=== PATIENT | male | born 1960 | race Caucasian/White ===

== ENCOUNTER 2025-06-06 07:30 | Observation (INO) ==
--- NOTE | 2025-06-06 07:44 | EKG ---
Test Reason : SOB Blood Pressure : */* mmHG Vent. Rate : 92 BPM Atrial Rate : * BPM P-R Int : * ms QRS Dur : 84 ms QT Int : 372 ms P-R-T Axes : * 48 81 degrees QTc Int : 460 ms Atrial fibrillation Abnormal ECG When compared with ECG of 19-FEB-2024 16:28, No significant change was found Confirmed by Ron Doll MD ([id number]) on 06/07/2025 7:28:36 AM Referred By: Confirmed By: Ron Doll MD
[2025-06-06 08:09] LABS: MEAN PLATELET VOLUME 7.8 fL (7.4-11.0); RED CELL DISTRIBUTION WIDTH 14.7 % (11.6-16.5)
[2025-06-06 08:12] LABS: INR 1.01 (0.8-1.3)
[2025-06-06] MEDS: ELIQUIS PO ONE (08:20)
[2025-06-06] MEDS: CARDIZEM INJ 50 MG VIAL IVP ONE (08:21)
[2025-06-06] MEDS ORDERED: OMNIPAQUE 350 mg/mL 100 mL BTL 100 ML ONE (08:21)
[2025-06-06 08:22] LABS: CREATININE 1.17 mg/dL (0.70-1.30); eGFR NON BLACK RACES > 60 (>60)
--- NOTE | 2025-06-06 09:14 | DR.SOBA ---
HPI Time Seen Time Seen by Provider: 06/06/25 09:14 Primary Care Physician Primary Care Physician: Cha Damon HPI Comment HPI Comment: Patient with complaints of sudden onset of shortness of breath and palpitations since yesterday. Denies fever or chills. Denies chest pain. Complaints Chief Complaint:: Pt states that yesterday he had a sudden onset of shortness of breath. Pt states that the shortness of breath is at rest and with exertion.Pt states, "I feel like I just can't get a good deep breath in." Pt denies any chest pain, cough, fever or chills. COVID-19 Coronavirus risk:travel/contact w/high risk person: No Has patient experienced Coronavirus symptoms: No Source History Provided: Patient Mode of Arrival Mode of Arrival: Ambulatory Timing Onset of Chief Complaint: 06/06/25 PMH PMH Past Medical History: Yes Past Medical History: Arthritis Past Medical History Comment: afib,BPH Past Surgical History: Yes Surgical History: Ortho Surgery Past Surgical History Comment: left knee surgery, right rotator surgery, left ear surgery, weight loss surgery, hernia repair Family History History of Family Medical Conditions: Yes Family Medical History: Diabetes Mellitus Social History Does patient currently use any type of tobacco product: No Have you used tobacco products in the last 12 months: No Type of Tobacco Use: None Does any household member use tobacco: No Alcohol Use: None Do you use any recreational Drugs:: No Lives With: Family Lives Where: Home Travel Risk Coronavirus risk:travel/contact w/high risk person: No Has patient experienced Coronavirus symptoms: No Infectious screening In the last 2 months have you had wt loss of >10#?: NO Have you had fever, night sweats or hemotysis?: No Have you traveled outside the country in the last 6 months?: No Isolation: Standard ROS Review of Systems Constitutional: No Symptoms Reported Eyes: No Symptoms Reported ENTM: No Symptoms Reported Respiratoy: See HPI and Short of Breath; negative Non-Productive Cough or Wheezing Cardiovascular: See HPI and Palpitations; negative Chest Pain, Edema or Syncope Gastrointestinal/Abdominal: No Symptoms Reported Genitourinary: No Symptoms Reported Neurological: No Symptoms Reported Musculoskeletal: No Symptoms Reported Integumentary: No Symptoms Reported Hematologic/Lymphatic: No Symptoms Reported Endocrine: No Symptoms Reported Psychiatric: No Symptoms Reported All Other Systems: Reviewed and Negative PE Vital Signs Vitals: Vital Signs Temperature 97.8 F Pulse Rate 107 Pulse Rate 99 Pulse Rate 95 Pulse Rate 85 Pulse Rate 83 Pulse Rate 84 Pulse Rate 91 Pulse Rate 96 Pulse Rate 96 Pulse Rate 80 Pulse Rate 85 Pulse Rate 104 Pulse Rate 118 Pulse Rate 108 Pulse Rate 105 Pulse Rate 102 Respiratory Rate 25 Respiratory Rate 26 Respiratory Rate 31 Respiratory Rate 21 Respiratory Rate 20 Respiratory Rate 23 Respiratory Rate 22 Respiratory Rate 24 Respiratory Rate 28 Respiratory Rate 23 Respiratory Rate 21 Respiratory Rate 24 Respiratory Rate 18 Respiratory Rate 12 Respiratory Rate 24 Blood Pressure 220/119 Blood Pressure 180/104 Blood Pressure 213/95 Blood Pressure 176/121 Blood Pressure 178/96 Blood Pressure 153/101 Blood Pressure 182/124 Blood Pressure 118/115 Blood Pressure 184/111 Blood Pressure 184/111 O2 Sat by Pulse Oximetry 93 O2 Sat by Pulse Oximetry 95 O2 Sat by Pulse Oximetry 97 O2 Sat by Pulse Oximetry 92 O2 Sat by Pulse Oximetry 94 O2 Sat by Pulse Oximetry 96 O2 Sat by Pulse Oximetry 94 O2 Sat by Pulse Oximetry 97 O2 Sat by Pulse Oximetry 98 O2 Sat by Pulse Oximetry 98 O2 Sat by Pulse Oximetry 98 O2 Sat by Pulse Oximetry 98 O2 Sat by Pulse Oximetry 96 O2 Sat by Pulse Oximetry 99 General Limitations: No Limitations General Appearance: Alert and In No Apparent Distress Head Head Exam: Normal Inspection Eyes Eye exam: Normal Appearance ENT ENT Exam: Normal Exam Neck Neck Exam: Normal Inspection Chest Chest Inspection: Normal Inspection Respiratory Respiratory Exam: Other (Diminished right lower lobe.) Cardiovascular Cardiovascular Exam: Tachycardia and Irregular Rhythm Abdominal Exam Abdominal Exam: Normal Inspection, Normal Bowel Sounds and Soft Extremities Extremities Exam: Normal Capillary Refill and Edema Back Back Exam: Normal Inspection Neurologic Neurological Exam: Alert and Oriented X3 Psychiatric Psychiatric Exam: Normal Affect and Normal Mood Skin Skin Exam: Warm, Dry, Intact and Normal Color COURSE Treatment Treatment: Patient with A-fib and RVR improved on diltiazem. Consultation Consultation Comments: Discussed case with Dr. Howell and he is agreeable to admission. Critical Care Notes Total Time (mins): 37 Critical Diagnosis: A-fib with RVR, acute on chronic CHF, right-sided pneumonia Critical Interventions: Vancomycin and Zosyn administered, 20 mg of IV Lasix. Extensive workup including looking for blood clots. Time also spent coordinating care with hospitalist for admission. ROR Labs Reviewed Laboratory Results Reviewed?: Yes 06/06/25 07:56 06/06/25 07:56 Laboratory: WBC 4.3 X10^3/uL (3.6-10.0) 06/06/25 07:56 RBC 4.51 X10^6/uL (4.7-6.0) L 06/06/25 07:56 Hgb 13.3 g/dL (13.5-18.0) L 06/06/25 07:56 Hct 39.9 % (42.0-54.0) L 06/06/25 07:56 MCV 88.6 fL (80.0-100.0) 06/06/25 07:56 MCH 29.6 pg (27.0-34.0) 06/06/25 07:56 MCHC 33.4 g/dL (33.0-35.0) 06/06/25 07:56 RDW 14.7 % (11.6-16.5) 06/06/25 07:56 Plt Count 169 X10^3/uL (150.0-450.0) 06/06/25 07:56 MPV 7.8 fL (7.4-11.0) 06/06/25 07:56 Neut % (Auto) 82.6 % (42.0-75.0) H 06/06/25 07:56 Lymph % (Auto) 8.2 % (21.0-51.0) L 06/06/25 07:56 [place] % (Auto) 7.0 % (0.0-13.0) 06/06/25 07:56 Eos % (Auto) 1.6 % (0.9-2.9) 06/06/25 07:56 Baso % (Auto) 0.6 % (0.2-1.0) 06/06/25 07:56 Neut # (Auto) 3.6 x10^3/uL (2.2-4.8) 06/06/25 07:56 Lymph # (Auto) 0.4 X10^3/uL (1.3-2.9) L 06/06/25 07:56 [place] # (Auto) 0.3 x10^3/uL (0.3-0.8) 06/06/25 07:56 Eos # (Auto) 0.1 x10^3/uL (0.0-0.2) 06/06/25 07:56 Baso # (Auto) 0.0 X10^3/uL (0.0-0.1) 06/06/25 07:56 Absolute Nucleated RBC 0.0 /100WBC 06/06/25 07:56 PT 13.4 SECONDS (11.8-14.3) 06/06/25 07:56 INR Target Range - 06/06/25 07:56 INR 1.01 (0.8-1.3) 06/06/25 07:56 APTT 28.2 SECONDS (22.9-36.5) 06/06/25 07:56 PTT Comment - 06/06/25 07:56 D-Dimer 1.46 ug/ml (0.0-0.57) H 06/06/25 07:56 Sodium 141 mmol/L (136-145) 06/06/25 07:56 Corrected Sodium TNP 06/06/25 07:56 Potassium 4.2 mmol/L (3.5-5.1) 06/06/25 07:56 Chloride 103 mmol/L (98-107) 06/06/25 07:56 Carbon Dioxide 32.4 mmol/L (21-32) H 06/06/25 07:56 BUN 17 mg/dL (7-18) 06/06/25 07:56 Creatinine 1.17 mg/dL (0.70-1.30) 06/06/25 07:56 Est GFR (MDRD) Af Amer > 60 (>60) 06/06/25 07:56 Est GFR (MDRD) Non-Af > 60 (>60) 06/06/25 07:56 Glucose 108 mg/dL (65-99) H 06/06/25 07:56 Lactic Acid 1.0 mmol/L (0.4-2.0) 06/06/25 09:43 Calcium 8.6 mg/dL (8.5-10.1) 06/06/25 07:56 Corrected Calcium TNP 06/06/25 07:56 Total Bilirubin 1.00 mg/dL (0.2-1.0) 06/06/25 07:56 AST 33 Units/L (15-37) 06/06/25 07:56 ALT 33 Units/L (12-78) 06/06/25 07:56 Alkaline Phosphatase 120 Units/L (46-116) H 06/06/25 07:56 Creatine Kinase 86 Units/L (39-308) 06/06/25 07:56 Troponin I High Sens 22.7 ng/L (4.0-60.0) 06/06/25 09:43 B-Natriuretic Peptide 132 pg/mL (0-79) H 06/06/25 07:56 Total Protein 7.0 g/dL (6.4-8.2) 06/06/25 07:56 Albumin 3.6 g/dL (3.4-5.0) 06/06/25 07:56 Globulin 3.4 g/dL (2.5-4.5) 06/06/25 07:56 Albumin/Globulin Ratio 1.1 Ratio (1.1-2.1) 06/06/25 07:56 Other Results Comments: Name: ALYSSA ANDRADE Miley : 1960 Sex: M Location: ER Order Number(s): [id number] Procedure(s):LOWER EXT VENOUS, BILATERAL Ordering Physician: Ulises Holliday Primary Care: Tenisha Damon Service Date: 06/06/25 Service Time: 914 EXAM: LOWER EXT VENOUS, BILATERAL HISTORY: elevated ddimer; SOB, POS D DIMER COMPARISON: None. TECHNIQUE: Grayscale and color Doppler imaging of the bilateral lower extremities using compression and augmentation techniques focused to the deep venous system. FINDINGS: There is normal color Doppler flow demonstrated from the common femoral vein through of the posterior tibial vein of the bilateral lower extremities. The vessels augment and compress normally with no DVT identified. IMPRESSION: Negative for DVT in the right and left lower extremity. Generalized subcutaneous edema is noted. THIS IS AN ELECTRONICALLY VERIFIED FINAL REPORT 06/06/2025 10:36 AM - Electronically signed by Geoff Borjas MD Name: RAYMONDALYSSA Miley : 1960 Sex: M Location: ER Order Number(s): [id number] Procedure(s):CTA, CHEST Ordering Physician: Ulises Holliday Primary Care: Tenisha Damon Service Date: 06/06/25 Service Time: 808 EXAM: CTA, CHEST HISTORY: shortness of breath; COMPARISON: Chest x-ray of same day TECHNIQUE: Axial CT was performed from the thoracic inlet to the upper abdomen with an arterial phase IV contrast bolus. The axial sequences are reconstructed with multiplaner reformats;volume rendered MIP and/or 3D reconstruction was generated from the original axial dataset. FINDINGS: The thyroid gland is average size There is a large right-sided pleural effusion with associated compressive related subsegmental atelectasis within the inferior right upper lobe along the surface of the fissures, abutting the pleural effusion. A portion of the pleural effusion is also observed to communicate with the major and minor fissure. There is a trace left-sided pleural effusion which also communicates with left major fissure. Subsegmental atelectasis is demonstrated within the left upper lobe, lingula, and left lower lobe. There is evidence of interlobular septal thickening associated with mild interstitial edema. The cardiac silhouette is enlarged with multi chamber dilation. The left ventricular wall is hypertrophied. Right sided heart dilation is also demonstrated with minimal reflux of contrast into the IVC. There is generalized anasarca of the soft tissues. Altogether this indicates the presence of both left and right-sided heart dysfunction Multiple calcified mediastinal and hilar lymph nodes are observed. No pathologically enlarged noncalcified lymph nodes are identified. Small pericardial effusion is observed. Thoracic aorta caliber is within normal limits. Assessment of pulmonary thromboembolism is limited on this exam due to extensive respiratory motion artifact. This results in an in homogeneous appearance of the segmental and subsegmental pulmonary artery branches particularly within the upper lobes. However, please note that there are no centrally occlusive filling defects associated with the main, lobar, and proximal segmental pulmonary artery branches meeting criteria for pulmonary thromboembolism. Postsurgical changes are demonstrated at the GE junction. Surgical suture material is seen along the lesser curvature of the stomach. A small sliding-type hiatal hernia is suspected. Motion artifact also limits anatomic detail through the upper abdomen. There are punctate nonobstructing calculi associated with left and right kidney. No significant free fluid is identified within the upper abdomen. There is thickening and low attenuation of the bilateral adrenal glands, right more so than left. Evaluation of the bony structures reveals no acute osseous abnormalities or aggressive bony lesions. Multilevel bridging osteophytes of the spine are typical of diffuse idiopathic skeletal hyperostosis. Multilevel Schmorl's node defects are observed. There is a chronic appearing T9 compression fracture with moderate height loss. Thoracic aortic caliber IMPRESSION: Cardiomegaly with dilatation of the right and left heart chambers, left ventricular wall hypertrophy and small pericardial effusion. Mild pulmonary edema. Large right-sided pleural effusion and small right-sided pleural effusion communicating with the fissures, with a associated subsegmental atelectasis Reflux of contrast into the IVC and anasarca of the soft tissues indicating concomitant right-sided and left-sided heart dysfunction Exam is limited significantly by respiratory motion artifact with respect to pulmonary thromboembolism assessment, resulting in inhomogeneous appearance of the segmental and subsegmental pulmonary artery branches, particularly within the bilateral upper lobes; however, there are no centrally occlusive filling defects within the larger caliber pulmonary artery branches meeting criteria for pulmonary thromboembolism. If pulmonary thromboembolism remains of clinical concern, repeat exam may be considered. Calcified mediastinal and hilar lymph nodes may be associated with old granulomatous disease, sarcoidosis, or previously treated lymphoproliferative disorder. Punctate bilateral nonobstructing renal calculi Radiation dose reduction was achieved through individualized adjustment of kVP and/or mA, through adaptive statistical iterative reconstruction, and/or through automated tube current modulation. THIS IS AN ELECTRONICALLY VERIFIED FINAL REPORT 06/06/2025 10:12 AM - Electronically signed by Geoff Borjas MD XRAY X-ray Results: Name: ALYSSA ANDRADE [facility]#: [id number] : 1960 Sex: M Location: Order Number(s): [id number] Procedure(s):CHEST, 1 VIEW X-RAY Ordering Physician: Ulises Holliday Primary Care: Tenisha Damon Service Date: 06/06/25 Service Time: 742 EXAM: CHEST, 1 VIEW HISTORY: SOB ; COMPARISON: No relevant prior studies were available for comparison at the time of interpretation. TECHNIQUE: CHEST, 1 VIEW FINDINGS: Chest: Lines and tubes: Cardiac leads overlie the chest. Mediastinum: Cardiomegaly. Pulmonary vessels: There is pulmonary vascular congestion. Lung jack: Patchy opacities are seen Pleura: There is blunting of the right costophrenic angle. No pneumothorax. Bones and soft tissues: No acute osseous or soft tissue abnormality. IMPRESSION: 1. Findings suggest pneumonia versus heart failure exacerbation THIS IS AN ELECTRONICALLY VERIFIED FINAL REPORT 06/06/2025 9:19 AM - Electronically signed by Jessee Dewitt MD EKG Rate: 92 [place]: Normal Rhythm: Afib ST: Normal Opioid Opioid Risk Tool Age (Jeffery box if 16-45): No History of Preadolescent Sexual Abuse: No Total: 0 Total Score Risk Category: Low Risk Copyright: [place] LR predicting aberrant behaviors Discharge Plan Diagnosis Discharge Problem: Atrial fibrillation with rapid ventricular response, Acute exacerbation of CHF (congestive heart failure), Pneumonia involving right lung Discharge Plan Patient Disposition: ADMITTED INPATIENT Condition: Stable Prescriptions: No Action tramadol 50 MG tablet 50 mg PO Q4H PRN (Reason: Pain) tamsulosin 0.4 mg capsule 0.4 mg PO DAILY dextroamphetamine-amphetamine 30 mg tablet 30 mg PO BID ibuprofen 800 mg tablet 800 mg PO TID Health Concerns: Post Hospitalization: new medications and changes needed to prevent readmission or further decline. Pt educated and given instructions on all concerns. Plan of Treatment: Continue with present treatment and follow up plan. Pt is to keep follow up appointment as instructed and take medications as ordered. Orders to Discharge Patient Discharge Orders: Transfer (Routine); Ordered 06/06/25 Ordered By: Ulises Holliday Follow ups/Referrals Follow ups/Referrals: TENISHA DAMON [Primary Care Provider, Unknown] - 3 days Instructions Stand Alone Forms: Find Help Web Site, Post Hospital Follow Up Care Print Language: WELSH
[2025-06-06] MEDS: APRESOLINE INJ 20 MG VIAL IVP ONE (09:21)
[2025-06-06] MEDS ORDERED: NS 250 ML IV 25 ML IV PRN (09:22)
--- NOTE | 2025-06-06 09:22 | RAD ---
EXAM: CHEST, 1 VIEW HISTORY: SOB ; COMPARISON: No relevant prior studies were available for comparison at the time of interpretation. TECHNIQUE: CHEST, 1 VIEW FINDINGS: Chest: Lines and tubes: Cardiac leads overlie the chest. Mediastinum: Cardiomegaly. Pulmonary vessels: There is pulmonary vascular congestion. Lung jack: Patchy opacities are seen Pleura: There is blunting of the right costophrenic angle. No pneumothorax. Bones and soft tissues: No acute osseous or soft tissue abnormality. IMPRESSION: 1. Findings suggest pneumonia versus heart failure exacerbation THIS IS AN ELECTRONICALLY VERIFIED FINAL REPORT 06/06/2025 9:19 AM - Electronically signed by Jessee Dewitt MD
[2025-06-06] MEDS: ZOSYN VIAL 3.375 GRAMS 3.375 G in NS 100 ML IV 100 ML IV ONE (10:11)
--- NOTE | 2025-06-06 10:19 | CT ---
EXAM: CTA, CHEST HISTORY: shortness of breath; COMPARISON: Chest x-ray of same day TECHNIQUE: Axial CT was performed from the thoracic inlet to the upper abdomen with an arterial phase IV contrast bolus. The axial sequences are reconstructed with multiplaner reformats;volume rendered MIP and/or 3D reconstruction was generated from the original axial dataset. FINDINGS: The thyroid gland is average size There is a large right-sided pleural effusion with associated compressive related subsegmental atelectasis within the inferior right upper lobe along the surface of the fissures, abutting the pleural effusion. A portion of the pleural effusion is also observed to communicate with the major and minor f issure. There is a trace left-sided pleural effusion which also communicates with left major fissure. Subsegmental atelectasis is demonstrated within the left upper lobe, lingula, and left lower lobe. There is evidence of interlobular septal thickening associated with mild interstitial edema. The cardiac silhouette is enlarged with multi chamber dilation. The left ventricular wall is hypertrophied. Right sided heart dilation is also demonstrated with minimal reflux of contrast into the IVC. There is generalized anasarca of the soft tissues. Altogether this indicates the presence of both left and right-sided heart dysfunction Multiple calcified mediastinal and hilar lymph nodes are observed. No pathologically enlarged noncalcified lymph nodes are identified. Small pericardial effusion is observed. Thoracic aorta caliber is within normal limits. Assessment of pulmonary thromboembolism is limited on this exam due to extensive respiratory motion artifact. This results in an in homogeneous appearance of the segmental and subsegmental pulmonary artery branches particularly within the upper lobes. However, please note that there are no centrally occlusive filling defects associated with the main, lobar, and proximal segmental pulmonary artery branches meeting criteria for pulmonary thromboembolism. Postsurgical changes are demonstrated at the GE junction. Surgical suture material is seen along the lesser curvature of the stomach. A small sliding-type hiatal hernia is suspected. Motion artifact also limits anatomic detail through the upper abdomen. There are punctate nonobstructing calculi associated with left and right kidney. No significant free fluid is identified within the upper abdomen. There is thickening and low attenuation of the bilateral adrenal glands, right more so than left. Evaluation of the bony structures reveals no acute osseous abnormalities or aggressive bony lesions. Multilevel bridging osteophytes of the spine are typical of diffuse idiopathic skeletal hyperostosis. Multilevel Schmorl's node defects are observed. There is a chronic appearing T9 compression fracture with moderate height loss. Thoracic aortic caliber IMPRESSION: Cardiomegaly with dilatation of the right and left heart chambers, left ventricular wall hypertrophy and small pericardial effusion. Mild pulmonary edema. Large right-sided pleural effusion and small right-sided pleural effusion communicating with the fissures, with a associated subsegmental atelectasis Reflux of contrast into the IVC and anasarca of the soft tissues indicating concomitant right-sided and left-sided heart dysfunction Exam is limited significantly by respiratory motion artifact with respect to pulmonary thromboembolism assessment, resulting in inhomogeneous appearance of the segmental and subsegmental pulmonary artery branches, particularly within the bilateral upper lobes; however, there are no centrally occlusive filling defects within the larger caliber pulmonary artery branches meeting criteria for pulmonary thromboembolism. If pulmonary thromboembolism remains of clinical concern, repeat exam may be considered. Calcified mediastinal and hilar lymph nodes may be associated with old granulomatous disease, sarcoidosis, or previously treated lymphoproliferative disorder. Punctate bilateral nonobstructing renal calculi Radiation dose reduction was achieved through individualized adjustment of kVP and/or mA, through adaptive statistical iterative reconstruction, and/or through automated tube current modulation. THIS IS AN ELECTRONICALLY VERIFIED FINAL REPORT 06/06/2025 10:12 AM - Electronically signed by Geoff Borjas MD
--- NOTE | 2025-06-06 10:39 | VAS ---
EXAM: LOWER EXT VENOUS, BILATERAL HISTORY: elevated ddimer; SOB, POS D DIMER COMPARISON: None. TECHNIQUE: Grayscale and color Doppler imaging of the bilateral lower extremities using compression and augmentation techniques focused to the deep venous system. FINDINGS: There is normal color Doppler flow demonstrated from the common femoral vein through of the posterior tibial vein of the bilateral lower extremities. The vessels augment and compress normally with no DVT identified. IMPRESSION: Negative for DVT in the right and left lower extremity. Generalized subcutaneous edema is noted. THIS IS AN ELECTRONICALLY VERIFIED FINAL REPORT 06/06/2025 10:36 AM - Electronically signed by Geoff Borjas MD
[2025-06-06] MEDS: LASIX IVP ONE (11:12)
[2025-06-06] MEDS: VANCOMYCIN IV *PREMIX 1 G/200 ML BAG 1 G/200 ML PIGGYBACK IV ONE (11:16)
[2025-06-06] MEDS ORDERED: LOPRESSOR TAB 25 MG ONE (11:19)
[2025-06-06] MEDS: LOPRESSOR TAB 25 MG PO ONE (11:20)
[2025-06-06] MEDS ORDERED: NORCO 5/325 MG TAB PO PRN (11:53)
[2025-06-06] MEDS ORDERED: ULTRAM PO PRN (11:53)
[2025-06-06] MEDS ORDERED: CONSULT PHARMACY - POTASSIUM & MAGNESIUM XX SCH (12:00)
[2025-06-06 12:30] VITALS: BMI 28.8
[2025-06-06] MEDS: LASIX IVP SCH (16:39)
[2025-06-06] MEDS: XOPENEX 1.25 MG/3 ML NEBULE NEB SCH (16:41)
[2025-06-06] MEDS: TYLENOL 325 MG TAB PO PRN (17:49)
[2025-06-06] MEDS ORDERED: PULMICORT NEB TX 0.5 MG NEB ONE (19:15)
[2025-06-06] MEDS: PULMICORT NEB TX 0.5 MG NEB SCH (20:11)
[2025-06-06] MEDS: LOPRESSOR TAB 25 MG PO SCH (21:43)
[2025-06-06] MEDS: ELIQUIS PO SCH (21:43)
[2025-06-07 05:48] LABS: MEAN PLATELET VOLUME 8.4 fL (7.4-11.0); RED CELL DISTRIBUTION WIDTH 14.6 % (11.6-16.5)
[2025-06-07 06:08] LABS: COR NA(FOR HYPERGLY) 142 mmol/L (136-145); CREATININE 1.12 mg/dL (0.70-1.30); eGFR NON BLACK RACES > 60 (>60)
--- NOTE | 2025-06-07 07:16 | RAD ---
EXAMINATION: CHEST, 1 VIEW HISTORY: PNEUMONIA, ACUTE CHF EXACERBATION ; ARTHRITIS, AFIB, BPH SX: ORTHO, WLS, HERNIA REPAIR . COMPARISON STUDY: Chest x-ray 06/06/2025 TECHNIQUE: Single portable AP view of the chest FINDINGS: Lungs are expanded. Patchy alveolar infiltrates left mid and lower lung field, right pulmonary base. Dense opacity obscuring the right lower lung field. [id number] cardiac silhouette enlargement. Slight pulmonary vascular congestion. Bones are intact. IMPRESSION: Cardiac silhouette enlargement with slight pulmonary vascular congestion. Dense opacity obscuring the right lower lung jack suspect pleural fluid. Patchy infiltrates scattered in the left mid and lower lung field, right pulmonary base. THIS IS AN ELECTRONICALLY VERIFIED FINAL REPORT 06/07/2025 7:12 AM - Electronically signed by Hawa Dailey MD
--- NOTE | 2025-06-07 08:32 | DR.H&P ---
H&P History & Physical for Day of: H&P Date: 06/06/25 History of Present Illness History of Present Illness: Pt is a 65 WM, ER admission, pt states that yesterday he had a sudden onset of shortness of breath. Pt states that the shortness of breath is at rest and with exertion. Pt states, "I feel like I just can't get a good deep breath in." Pt denies any chest pain, cough, fever or chills. Past Medical History Past Medical History: Arthritis Past Surgical History Surgical History: Ortho Surgery Family History Family Medical History: Hypertension Social History Does patient currently use any type of tobacco product: No Have you used tobacco products in the last 12 months: No Type of Tobacco Use: None Does any household member use tobacco: No Alcohol Use: None Drug Use: None Medications Home Medications: Home Medications Medication Instructions Recorded Confirmed Type tramadol 50 mg tablet 50 mg PO Q4H PRN Pain 06/06/25 History tamsulosin 0.4 mg capsule 0.4 mg PO DAILY 05/18/21 History ibuprofen 800 mg tablet 800 mg PO TID 11/23/2306/06 History dextroamphetamine-amphetamine 30 30 mg PO BID 06/06/25 06/06/25 History mg tablet Allergies Allergies Allergy/AdvReac Type Severity Reaction Status Date / Time codeine Allergy RASH Verified 03/02/24 14:09 lorazepam (From Ativan) Allergy CARDIOVASCULAR Verified 03/02/24 14:09 COMPLICATIONS Labs 06/07/25 05:22 06/07/25 05:22 Labs: Laboratory WBC 4.9 X10^3/uL (3.6-10.0) 06/07/25 05:22 RBC 4.86 X10^6/uL (4.7-6.0) 06/07/25 05:22 Hgb 14.4 g/dL (13.5-18.0) 06/07/25 05:22 Hct 42.9 % (42.0-54.0) 06/07/25 05:22 MCV 88.2 fL (80.0-100.0) 06/07/25 05:22 MCH 29.7 pg (27.0-34.0) 06/07/25 05:22 MCHC 33.7 g/dL (33.0-35.0) 06/07/25 05:22 RDW 14.6 % (11.6-16.5) 06/07/25 05:22 Plt Count 181 X10^3/uL (150.0-450.0) 06/07/25 05:22 MPV 8.4 fL (7.4-11.0) 06/07/25 05:22 Neut % (Auto) 80.5 % (42.0-75.0) H 06/07/25 05:22 Lymph % (Auto) 8.6 % (21.0-51.0) L 06/07/25 05:22 [place] % (Auto) 8.4 % (0.0-13.0) 06/07/25 05:22 Eos % (Auto) 1.6 % (0.9-2.9) 06/07/25 05:22 Baso % (Auto) 0.9 % (0.2-1.0) 06/07/25 05:22 Neut # (Auto) 4.0 x10^3/uL (2.2-4.8) 06/07/25 05:22 Lymph # (Auto) 0.4 X10^3/uL (1.3-2.9) L 06/07/25 05:22 [place] # (Auto) 0.4 x10^3/uL (0.3-0.8) 06/07/25 05:22 Eos # (Auto) 0.1 x10^3/uL (0.0-0.2) 06/07/25 05:22 Baso # (Auto) 0.0 X10^3/uL (0.0-0.1) 06/07/25 05:22 Absolute Nucleated RBC 0.1 /100WBC 06/07/25 05:22 PT 13.4 SECONDS (11.8-14.3) 06/06/25 07:56 INR Target Range - 06/06/25 07:56 INR 1.01 (0.8-1.3) 06/06/25 07:56 APTT 28.2 SECONDS (22.9-36.5) 06/06/25 07:56 PTT Comment - 06/06/25 07:56 D-Dimer 1.46 ug/ml (0.0-0.57) H 06/06/25 07:56 Sodium 141 mmol/L (136-145) 06/07/25 05:22 Corrected Sodium 142 mmol/L (136-145) 06/07/25 05:22 Potassium 4.2 mmol/L (3.5-5.1) 06/07/25 05:22 Chloride 101 mmol/L (98-107) 06/07/25 05:22 Carbon Dioxide 33.0 mmol/L (21-32) H 06/07/25 05:22 BUN 16 mg/dL (7-18) 06/07/25 05:22 Creatinine 1.12 mg/dL (0.70-1.30) 06/07/25 05:22 Est GFR (MDRD) Af Amer > 60 (>60) 06/07/25 05:22 Est GFR (MDRD) Non-Af > 60 (>60) 06/07/25 05:22 Glucose 134 mg/dL (65-99) H 06/07/25 05:22 Lactic Acid 1.0 mmol/L (0.4-2.0) 06/06/25 09:43 Calcium 8.9 mg/dL (8.5-10.1) 06/07/25 05:22 Corrected Calcium TNP 06/07/25 05:22 Total Bilirubin 1.00 mg/dL (0.2-1.0) 06/07/25 05:22 AST 29 Units/L (15-37) 06/07/25 05:22 ALT 31 Units/L (12-78) 06/07/25 05:22 Alkaline Phosphatase 125 Units/L (46-116) H 06/07/25 05:22 Creatine Kinase 86 Units/L (39-308) 06/06/25 07:56 Troponin I High Sens 22.7 ng/L (4.0-60.0) 06/06/25 09:43 B-Natriuretic Peptide 281 pg/mL (0-79) H 06/07/25 05:22 Total Protein 7.0 g/dL (6.4-8.2) 06/07/25 05:22 Albumin 3.5 g/dL (3.4-5.0) 06/07/25 05:22 Globulin 3.5 g/dL (2.5-4.5) 06/07/25 05:22 Albumin/Globulin Ratio 1.0 Ratio (1.1-2.1) L 06/07/25 05:22 Review of Systems Constitutional: Weakness; denies Fever Eyes: No Symptoms Reported ENT: No Symptoms Reported Respiratory: Shortness of Breath Cardiovascular: Palpitations Gastrointestinal: No Symptoms Reported Genitourinary: No Symptoms Reported Musculoskeletal: Back Pain Skin: No Symptoms Reported Neurological: No Symptoms Reported Physical Exam Vital Signs: Vital Signs Temperature 98.1 F Temperature 98.4 F Pulse Rate [Left Radial] 99 Pulse Rate [Left Radial] 89 Respiratory Rate 16 Respiratory Rate 19 Blood Pressure [Left Arm] 157/85 Blood Pressure [Left Arm] 148/92 Blood Pressure [Left Arm] 169/99 O2 Sat by Pulse Oximetry 94 O2 Sat by Pulse Oximetry 98 Oriented: Normal Eyes: Normal Ear: Normal Nose: Normal Throat: Dry Respiratory: Diminished Throughout Cardiovascular: Tachycardia Auscultation: Bowel Sounds: Normal Tenderness: Normal Skin: Decreased Turgur Musculoskeletal: Back:Lumbar Psychiatric: Anxiety Mood Description: Anxious Speech Pattern: Clear and Appropriate Assessment/Plan (1) Pneumonia involving right lung: Status: Acute Plan: admit, ekg monitoring and supplemental o2 resp therapy, resp swab, verify home medicaitons ce and cta chest ro pe in ER bp control, iv atbx therapy, continue eliquis therapy (2) Atrial fibrillation with rapid ventricular response: Status: Acute (3) Acute exacerbation of CHF (congestive heart failure): Status: Acute (4) Hypertension: Qualifiers: Hypertension type: primary hypertension Qualified Code(s): I10 - Essential (primary) hypertension Status: Acute
[2025-06-07 09:21] LABS: ABG ALLEN TEST POS; ABG BASE EXCESS 3.1 mmol/L (-2.0-2.0); ABG HCO3 27.0 mmol/L (22-26); ABG OXYGEN SATURATION 96.0 % (90-100); ABG PCO2 38.0 mmHg (35.0-45.0); ABG PH 7.460 (7.35-7.45); ABG PO2 77.0 mmHg (80.0-100.0)
[2025-06-07] MEDS: FLOMAX PO SCH (09:21)
[2025-06-07] MEDS: LASIX IVP SCH (09:21)
--- NOTE | 2025-06-07 09:42 | EKG ---
Test Reason : sob, afib Blood Pressure : */* mmHG Vent. Rate : 100 BPM Atrial Rate : * BPM P-R Int : * ms QRS Dur : 92 ms QT Int : 382 ms P-R-T Axes : * 63 152 degrees QTc Int : 492 ms Atrial fibrillation with premature ventricular or aberrantly conducted complexes Nonspecific ST and T wave abnormality Abnormal ECG When compared with ECG of 06-JUN-2025 07:43, Nonspecific T wave abnormality now evident in Inferior leads Nonspecific T wave abnormality, worse in Lateral leads Confirmed by Ron Doll MD ([id number]) on 06/07/2025 10:52:35 AM Referred By: Confirmed By: Ron Doll MD
[2025-06-07 12:05] VITALS: BP 110/57; PULSE 87; RESP 21; TEMP 97.7; O2SAT 96
== END 2025-06-07 14:40 | disposition home or self-care (01) ==
LOC: ER 07:30 → MED/SURG 07:30
PROVIDERS: ADMIT Internal Medicine; ATTEND Internal Medicine
DX: J90 Pleural effusion, not elsewhere classified; I48.20 Chronic atrial fibrillation, unspecified; R79.1 Abnormal coagulation profile; R06.02 Shortness of breath; J81.1 Chronic pulmonary edema; R94.31 Abnormal electrocardiogram [ECG] [EKG]; R79.81 Abnormal blood-gas level; Z03.818 Encounter for observation for suspected exposure to other biological agents ruled out; N40.0 Benign prostatic hyperplasia without lower urinary tract symptoms; I10 Essential (primary) hypertension; J18.8 Other pneumonia, unspecified organism; R00.2 Palpitations; I50.89 Other heart failure; R79.89 Other specified abnormal findings of blood chemistry; I11.0 Hypertensive heart disease with heart failure